=== PATIENT | male | born 1965 | race African-American/Black ===

== ENCOUNTER 2021-01-20 07:25 | Day surgery (SDC) | payer BC ==
--- NOTE | 2021-01-16 11:59 | RAD REPORT ---
EXAM DESCRIPTION: Michelle Farooq (2 Views)01/16/2021 11:52 am CLINICAL HISTORY: Preop COMPARISON: None FINDINGS: The lungs appear clear of acute infiltrate. The heart is normal size IMPRESSION: No acute abnormalities displayed
[2021-01-16 12:02] LABS: Absolute Lymphocytes (CBC) 2.3 K/uL (0.7-4.9); Basophils % 0.6 % (0-1.3); Hematocrit 42.1 % (39.6-49.0); Lymphocytes % 20.5 % (15.3-44.8); MPV 7.3 fL (7.6-11.3)
[2021-01-16 12:38] LABS: BUN Blood Urea Nitrogen 14 mg/dL (7-18); Bicarbonate 24 mmol/L (21-32); Glucose Level 94 mg/dL (74-106); Potassium 3.8 mmol/L (3.5-5.1); Sodium Level 137 mmol/L (136-145)
--- NOTE | 2021-01-16 15:56 | EKG ---
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
[2021-01-20] MEDS ORDERED: Ringers Lactate 1,000 ML IV ONE (07:57)
[2021-01-20] MEDS ORDERED: FENTANYL CITR 100 MCG/2 ML ONE ×2 (08:14→10:00)
[2021-01-20] MEDS ORDERED: MIDAZOLAM HCL 2 MG/2 ML INJ ONE (08:14)
[2021-01-20] MEDS ORDERED: dexAMETHasone 10 MG/ML VIAL ONE (08:14)
[2021-01-20] MEDS ORDERED: LIDOCAINE 1% MPF 5 ML VIAL ONE (08:14)
[2021-01-20] MEDS ORDERED: propofoL 200 MG/20 ML VIAL IV ONE (08:14)
[2021-01-20] MEDS ORDERED: CEFAZOLIN/SWI 2gm 2 GM/20 ML SYR ONE (09:00)
[2021-01-20] MEDS ORDERED: TRIAMCINOLONE ACETON 40 MG/ML VIAL ONE ×2 (09:04)
[2021-01-20] MEDS ORDERED: KETOROLAC 30 MG/ML INJ ONE (09:59)
[2021-01-20] MEDS ORDERED: ONDANSETRON 4 MG/2 ML VIAL ONE (10:28)
[2021-01-20] MEDS ORDERED: PHENAZOPYRIDINE 100MG TAB PO ONE (10:34)
[2021-01-20] MEDS ORDERED: HYDROCODONE/APAP 5/325 MG TAB PO PRN (10:34)
[2021-01-20 14:00] VITALS: BP 112/67; TEMP 97.7; O2SAT 99
--- NOTE | 2021-01-20 20:11 | OP ---
Date of Procedure: 01/20/2021 Surgeon: TORRES ALCALA Preoperative Diagnosis: Urethral stricture disease. Postoperative Diagnosis: Membranous urethral stricture disease of approximately 1.5 cm in length. Principal Procedure: 1. Direct vision internal urethrotomy. 2. Intralesional/intraurethral Kenalog injection 80 mg in 3 cc total volume. 3. Complex placement of a urethral Guillermo catheter. Date of Procedure: 01/20/2021 Indication For Procedure: Mr. Simpson presented to the Urology Clinic having previously been treated for urethral stricture disease recurrent by Dr. Tyson. He had undergone at least 1 if not 2 prior urethral dilations/internal urethrotomy and presented with recurrent pinpoint bulbar urethral stricture disease as observed in the office. Because of the severity of the stricture and the lack of necessary equipment within the office, he was counseled on the need for incision of the stricture, and I recommended Kenalog injection to give him the best opportunity to prevent scar tissue recurrence. Procedure In Detail: The patient was consented in the preoperative holding area before being transferred to the operative suite where general anesthesia was induced. He was given Ancef 2 g IV antimicrobial prophylaxis and pneumo boots were provided for DVT prophylaxis. He was placed in the lithotomy position, padded and secured to the table appropriately. His genitalia were prepped using Hibiclens and draped in standard fashion. The case was begun using a 25-[place] African direct-vision internal urethrotomy set inserting the obturator into the meatus using an obturator. Once this was done, the 0-degree lens with the attached cold knife was then inserted and the urethra was traversed under direct vision down to the level of the stricture, which was at least in the bulbar if not the membranous urethra. As noted previously, the stricture was pinpoint with an opening only approximately 1 or 2 mm maximum. Thus, incising the stricture at the 12 o'clock position, I was able to visualize the depth of the stricture disease to extend for at least another 1 cm proximal to that. As such, I then inverted the camera and incised the stricture at the 5 o'clock position and again at the 7 o'clock position. I was then able to incise the continued area of scar similarly at the 12 o'clock before incising the 5 o'clock and 7 o'clock positions again until an area of more normal mucosa was noted. This was approximately 1 cm from the striated sphincter as indicated by appropriate coaptation and subsequent visualization of the verumontanum proximal to that. I was less able to navigate beyond the verumontanum through the prostatic urethra and into the bladder. The bladder was full of urine and fluid and so was decompressed. I then backed the direct-vision urethrotome into the urethra and the area of stricture and incised further until bleeding tissue was visualized. Once this was done, I then removed the urethrotome and attempted to pass the 22- [place] rigid cystoscope into the bladder. Unfortunately, the cystoscope would not navigate beyond the dorsal lip of the stricture due to the design of the Olympus cystoscope. As a result, I incised further the dorsal overhang of the stricture until I was able to navigate the cystoscope into the prostatic urethra. I then backed the cystoscope into the area of the scar, and using an endoscopic injector needle, I took a mixture of 80 mg Kenalog in 3 cc total volume mixed with normal saline and injected 1 cc into each incised area of the stricture. Once this was performed, I had previously placed a [employer] guidewire into his bladder during the direct vision internal urethrotomy, so I then was able to easily pass a 20-[place] [employer] tip catheter into his bladder. There was return of light pink urine, and 15 cc of normal saline was placed into the balloon. The catheter was then secured via StatLock and a floor bag, and the patient was taken out of the lithotomy position. He was then taken out of the lithotomy position, transferred to a stretcher after being awakened from general anesthesia, and then transferred to the recovery room in good condition. Complications: None. Discharge Disposition: He will maintain the urethral Guillermo catheter for 10-14 days before undergoing a voiding trial in the Urology Clinic with nurse practitionerChris. He will be given a prescription for Bactrim Double Strength tablets twice a day for 14 days total. He should then see me back in followup for cystoscopy in the office in 6-8 weeks from today/the date of surgery. Subsequent determination of urethral calibration versus additional surgical procedures may be determined at that time. RAO/DAXAL Voice ID: [id number] Report ID: [id number] TIKI
== END 2021-01-20 12:10 | disposition home or self-care (01) ==
LOC: OR 07:25
PROVIDERS: ATTEND Urology
PROC: 3E0K83Z Introduction of Anti-inflammatory into Genitourinary Tract, Via Natural or Artificial Opening Endoscopic (ICD-10-PCS; 2021-01-20)
PROC: 0TND8ZZ Release Urethra, Via Natural or Artificial Opening Endoscopic (ICD-10-PCS; principal; 2021-01-20 08:45)
DX: N35.912 Unspecified bulbous urethral stricture, male (principal); R39.9 Unspecified symptoms and signs involving the genitourinary system; R33.9 Retention of urine, unspecified
CPT/HCPCS: 52276; 51715; 93005; 87088; 85025; 87086; 80048; 36415; 85610; 85730; 71046; J2704; J3301 ×2; J2250; J3010 ×2; J1100; J0690; J7120; J2405

== ENCOUNTER 2021-10-26 08:21 | Emergency (ER) | payer BC ==
--- NOTE | 2021-10-26 09:06 | RAD REPORT ---
EXAM DESCRIPTION: RAD - Foot Right 3 View - 10/26/2021 8:57 am CLINICAL HISTORY: PAIN COMPARISON: No comparisons FINDINGS: Accessory phalanges noted involving the fifth toe. Small calcaneal spurs are present. Mild soft tissue swelling is seen about the foot and ankle. No acute fracture is evident.
--- NOTE | 2021-10-26 09:12 | EDPHYS ---
Physician Documentation [facility] Name: Nishant Simpson Age: 56 yrs Sex: Male : 1965 Arrival Date: 10/26/2021 Time: 08:24 Bed 12 Private MD: ED Physician Rivas Carlton HPI: 10/26 08:37 This 56 yrs old Black Male presents to ER via Wheelchair with complaints of Foot injury rn and pain. 08:37 The patient presents with an injury, pain, swelling. The complaints affect the right rn foot. Onset: The symptoms/episode began/occurred 2 day(s) ago. Modifying factors: The symptoms are alleviated by nothing, the symptoms are aggravated by weight bearing, wearing shoes. Associated signs and symptoms: Pertinent positives: swelling, Pertinent negatives: fever, weakness. Severity of symptoms: At their worst the symptoms were moderate, in the emergency department the symptoms are unchanged. The patient has not experienced similar symptoms in the past. The patient has not recently seen a physician. Accidentally kicked ship fan 2 days ago while wearing regular shoes, reports pain to right great toe and distal foot, no other injury or pain.. Historical: - Allergies: 08:30 No Known Allergies; iw - Home Meds: 08:30 None [Active]; iw - PMHx: 08:30 None; iw - PSHx: 08:30 None; iw - Immunization history:: Client reports receiving the 2nd dose of the Covid vaccine. - Social history:: Smoking status: Patient denies any tobacco usage or history of. - Family history:: not pertinent. - Hospitalizations: : No recent hospitalization is reported. ROS: 08:37 MS/extremity: Positive for pain, swelling, Negative for deformity, paresthesias, rn puncture. 08:37 Constitutional: Negative for fever, chills, and weight loss, MS/Extremity: + injury and pain to right great toe and distal foot Skin: Negative for injury, rash, and discoloration, Neuro: Negative for weakness, numbness, tingling Exam: 08:37 Constitutional: This is a well developed, well nourished patient who is awake, alert, rn and in no acute distress. Skin: Warm, dry MS/ Extremity: Pulses equal, no cyanosis. Neurovascular intact. + mild tenderness and painful ROM right great toe and just proximal to 1st/2nd toes, no gross deformity, + mild swelling, no open wounds Vital Signs: 08:30 BP 141 / 107; Pulse 102; Resp 16; Pulse Ox 100% on R/A; Weight 106.59 kg; Height 5 ft. iw 6 in. (167.64 cm); Pain 9/10; 08:30 Body Mass Index 37.93 (106.59 kg, 167.64 cm) iw MDM: 08:33 Patient medically screened. rn 09:10 Differential diagnosis: fracture, sprain, arthritis. Data reviewed: vital signs, nurses rn notes, radiologic studies, plain films, and as a result, I will discharge patient. Counseling: I had a detailed discussion with the patient and/or guardian regarding: the historical points, exam findings, and any diagnostic results supporting the discharge/admit diagnosis, radiology results, the need for outpatient follow up, to return to the emergency department if symptoms worsen or persist or if there are any questions or concerns that arise at home. Special discussion: I discussed with the patient/guardian in detail that at this point there is no indication for admission to the hospital. It is understood, however, that if the symptoms persist or worsen the patient needs to return immediately for re-evaluation. 10/26 08:33 Order name: XRAY Foot RIGHT 3 View; Complete Time: 09:10 rn Administered Medications: No medications were administered Disposition Summary: 10/26/21 09:10 Discharge Ordered Location: Home rn Problem: new rn Symptoms: have improved rn Condition: Stable rn Diagnosis - Contusion of right foot rn Followup: rn - With: Private Physician - When: As needed - Reason: Recheck today's complaints, Re-evaluation by your physician Discharge Instructions: - Discharge Summary Sheet rn - Foot Contusion rn Forms: - Medication Reconciliation Form rn - Thank You Letter rn - Antibiotic rn wound care - Work release form iw - Prescription Opioid Use rn Signatures: Dispatcher [employer] Destiny Gary RN RN iw Rivas Carlton MD MD rn
--- NOTE | 2021-10-26 09:12 | ER ---
Nurse's Notes [facility] Name: Nishant Simpson Age: 56 yrs Sex: Male : 1965 Arrival Date: 10/26/2021 Time: 08:24 Bed 12 Private MD: Diagnosis: Contusion of right foot Presentation: 10/26 08:28 Chief complaint: Patient states: Tuesday night he kicked a shop fan in his garage , iw now has pain and swelling to right great toe and foot. Coronavirus screen: At this time, the client does not indicate any symptoms associated with coronavirus-19. Ebola Screen: Patient negative for fever greater than or equal to 101.5 degrees Fahrenheit, and additional compatible Ebola Virus Disease symptoms Patient denies exposure to infectious person. Patient denies travel to an Ebola-affected area in the 21 days before illness onset. No symptoms or risks identified at this time. Initial Sepsis Screen: Does the patient meet any 2 criteria? No. Patient's initial sepsis screen is negative. Does the patient have a suspected source of infection? No. Patient's initial sepsis screen is negative. Risk Assessment: Do you want to hurt yourself or someone else? Patient reports no desire to harm self or others. Onset of symptoms was October 24, 2021. 08:28 Method Of Arrival: Wheelchair iw 08:28 Acuity: TIMBO 4 iw Historical: - Allergies: 08:30 No Known Allergies; iw - Home Meds: 08:30 None [Active]; iw - PMHx: 08:30 None; iw - PSHx: 08:30 None; iw - Immunization history:: Client reports receiving the 2nd dose of the Covid vaccine. - Social history:: Smoking status: Patient denies any tobacco usage or history of. - Family history:: not pertinent. - Hospitalizations: : No recent hospitalization is reported. Screenin:36 Abuse screen: Denies threats or abuse. Denies injuries from another. Nutritional iw screening: No deficits noted. Tuberculosis screening: No symptoms or risk factors identified. Fall Risk None identified. Assessment: 08:36 General: Appears in no apparent distress. Behavior is calm, cooperative. Pain: iw Complains of pain in medial aspect of right toes and right first toe Pain currently is 9 out of 10 on a pain scale. Neuro: Level of Consciousness is awake, alert, obeys commands, Oriented to person, place, time, situation, Moves all extremities. Full function. Cardiovascular: Patient's skin is warm and dry. Respiratory: Respiratory effort is even, unlabored, Respiratory pattern is regular. Derm: Skin is intact, is healthy with good turgor. Vital Signs: 08:30 BP 141 / 107; Pulse 102; Resp 16; Pulse Ox 100% on R/A; Weight 106.59 kg; Height 5 ft. iw 6 in. (167.64 cm); Pain 9/10; 08:30 Body Mass Index 37.93 (106.59 kg, 167.64 cm) iw ED Course: 08:24 Patient arrived in ED. ds1 08:30 Triage completed. iw 08:30 Arm band placed on. iw 08:32 Rivas Carlton MD is Attending Physician. rn 08:36 Destiny Delvalle RN is Primary Nurse. iw 08:59 XRAY Foot RIGHT 3 View In Process Unspecified. EDMS 09:00 Patient has correct armband on for positive identification. iw 09:40 No provider procedures requiring assistance completed. Patient did not have IV access iw during this emergency room visit. Administered Medications: No medications were administered Outcome: 09:10 Discharge ordered by . rn 09:40 Discharged to home with family. iw 09:40 Condition: good 09:40 Discharge instructions given to patient, Instructed on discharge instructions, follow up and referral plans. Demonstrated understanding of instructions, follow-up care. 09:41 Patient left the ED. iw Signatures: Dispatcher [employer] EDID [email or web address] [id number] Destiny Delvalle RN RN iw Rivas Carlton MD MD rn
[2021-10-26 09:45] VITALS: BP 141/107; O2SAT 100
== END 2021-10-26 09:41 | disposition home or self-care (01) ==
LOC: ER 08:21
DX: S90.31XA Contusion of right foot, initial encounter (principal); W22.8XXA Striking against or struck by other objects, initial encounter
CPT/HCPCS: 99282

== ENCOUNTER 2025-05-06 06:00 | Observation (INO) | payer BC ==
--- NOTE | 2025-05-06 07:16 | RAD REPORT ---
EXAMINATION: ONE VIEW CHEST XR CLINICAL INDICATION: Male, 59 years old.,COUGH TECHNIQUE: Frontal chest projection is submitted. Examination is limited by patient positioning and t echnique. COMPARISON: 01/16/2021 FINDINGS: The lungs are grossly clear although suboptimal inspiratory effort somewhat limits evaluation. No pn eumothorax or sizable effusion. The heart is normal in size. Mediastinal contours are unremarkable. IMPRESSION: No acute intrathoracic abnormalities.
[2025-05-06] MEDS ORDERED: ONDANSETRON 4 MG/2 ML VIAL ONE (07:48)
[2025-05-06] MEDS ORDERED: FENTANYL CITR 100 MCG/2 ML ONE (07:49)
[2025-05-06] MEDS ORDERED: CEFTRIAXONE 2000 MG/VIAL ONE (07:49)
[2025-05-06] MEDS ORDERED: KETOROLAC 30 MG/ML INJ ONE (07:49)
[2025-05-06] MEDS ORDERED: Levofloxacin 750mg IV 750 MG/150 ML BAG IV ONE (07:51)
[2025-05-06] MEDS ORDERED: NA CHLORIDE 0.9% 1,000 ML ONE (07:51)
[2025-05-06] MEDS ORDERED: NA CHLORIDE 0.9% 50 ML ONE (07:51)
[2025-05-06 07:52] LABS: Absolute Lymphocytes (CBC) 1.3 K/uL (0.7-4.9); Hematocrit 40.9 % (39.6-49.0); Hemoglobin 14.1 g/dL (13.6-17.9); MCH 27.4 pg (27.0-35.0); MCHC 34.5 g/dL (32.0-36.0); MCV 79.4 fL (80-100); MPV 6.4 fL (7.6-11.3); Nucleated RBC Absolute Count 0.0 (0-0); Nucleated Red Blood Cells % 0.0 % (0-0); RBC Red Blood Cell Count 5.15 M/uL (4.33-5.43); White Blood Count 22.20 thou/uL (4.3-10.9)
[2025-05-06 08:00] LABS: PT Prothrombin Time 15.4 SECONDS (10-13.0); Protime INR 1.38
[2025-05-06 08:13] LABS: ALT/SGPT 22.0 U/L (16-61); AST/SGOT 14.0 U/L (15-37); Albumin 3.4 g/dL (3.4-5.0); Albumin/Globulin Ratio 0.7 (1.1-1.8); Alkaline Phosphatase 78.0 U/L (45-117); Anion Gap 7.8 mEq/L (5.0-15.0); BUN Blood Urea Nitrogen 10.0 mg/dL (7-18); Bilirubin Indirect, Calculated 0.7 mg/dL (0.2-0.8); Globulin 5.0 g/dL (2.3-3.5); Glucose Level 141.0 mg/dL (74-106); Lipase 30.0 U/L (13-75); Magnesium 2.0 mg/dL (1.6-2.4); NT PRO-BNP 50.0 pg/mL (<125); Potassium 3.8 mEq/L (3.5-5.1)
[2025-05-06 08:21] LABS: Troponin High Sensitivity 89.0 pg/mL (<58.9)
--- NOTE | 2025-05-06 08:25 | RAD REPORT ---
EXAMINATION: ULTRASOUND DUPLEX OF SCROTUM AND TESTICLES CLINICAL INDICATION: Male, 59 years, Fever;Pain;Swelling TECHNIQUE: Duplex scan of the scrotal contents was performed including real-time color and spectral D oppler ultrasonography with arterial inflow and venous outflow. COMPARISON: No prior exam. FINDINGS: RIGHT TESTICLE AND EPIDIDYMIS: The right testicle is mildly enlarged, measuring 4.6 x 3.2 x 3.5 cm. Normal, homogeneous echotexture with mild diffuse parenchymal edema, but no focal lesion seen. The right epididymis is enlarged. Small epididymal head cysts. Color Doppler flow in the right testicle shows diffuse hyperemia. Diffuse atrophy is particularly yvette ng the head as well. Normal arterial and venous spectral Doppler waveforms are identified. Mild complex hydrocele. Small Varicocele. LEFT TESTICLE AND EPIDIDYMIS: The left testicle is normal in size, measuring 4.3 x 2.3 x 2.4 cm. Normal, homogeneous echotexture with no focal lesion seen. The left epididymis is normal. Small epididymal head cysts. Color Doppler flow in the left testicle is normal. Normal arterial and venous spectral Doppler waveforms are identified. No hydrocele. Small varicocele. INGUINAL CANAL: No hernia. ADDITIONAL FINDINGS: None. IMPRESSION: Findings compatible with acute right epididymo-orchitis. Mild right hydrocele, mildly complex.
[2025-05-06 08:49] LABS: Blood Morphology Comment NOT SEEN (NOT SEEN); White Blood Cell Scan OK (OK)
--- NOTE | 2025-05-06 08:50 | EDPHYS ---
Physician Documentation [facility] Name: Nishant Simpson Age: 59 yrs Sex: Male : 1965 Arrival Date: 05/06/2025 Time: 06:00 Bed 7 Private MD: ED Physician Rivas Carlton HPI: 05/06 06:54 This 59 yrs old Black Male presents to ER via Ambulatory with complaints of Groin Pain, nemesio Fever. 06:54 The patient reports fever, not measured (subjective). Onset: The symptoms/episode nemesio began/occurred 3 day(s) ago. Modifying factors: there are no obvious modifying factors. Associated signs and symptoms: Pertinent positives:. Severity of symptoms: At their worst the symptoms were moderate in the emergency department the symptoms are unchanged. The patient has not experienced similar symptoms in the past. Historical: - Allergies: 06:36 No Known Allergies; br2 - PMHx: 06:36 None; br2 - Immunization history:: Adult Immunizations up to date. - Infectious Disease History:: Denies. - Social history:: Smoking status: Patient denies any tobacco usage or history of. Patient uses alcohol, on a daily basis. Patient/guardian denies using street drugs. ROS: 06:55 Constitutional: Negative for fever, chills, and weight loss, Eyes: Negative for injury, nemesio pain, redness, and discharge, ENT: Negative for injury, pain, and discharge, Neck: Negative for injury, pain, and swelling, Cardiovascular: Negative for chest pain, palpitations, and edema, Respiratory: Negative for shortness of breath, cough, wheezing, and pleuritic chest pain, Abdomen/GI: Negative for abdominal pain, nausea, vomiting, diarrhea, and constipation, Back: Negative for injury and pain, MS/Extremity: Negative for injury and deformity, Skin: Negative for injury, rash, and discoloration, Neuro: Negative for headache, weakness, numbness, tingling, and seizure, Psych: Negative for depression, anxiety, suicide ideation, homicidal ideation, and hallucinations, Allergy/Immunology: Negative for hives, rash, and allergies, Endocrine: Negative for neck swelling, polydipsia, polyuria, polyphagia, and marked weight changes, Hematologic/Lymphatic: Negative for swollen nodes, abnormal bleeding, and unusual bruising, 06:55 : Positive for testicular pain of the right testicle, Exam: 06:55 Constitutional: This is a well developed, well nourished patient who is awake, alert, nemesio and in no acute distress. Head/Face: Normocephalic, atraumatic. Eyes: Pupils equal round and reactive to light, extra-ocular motions intact. Lids and lashes normal. Conjunctiva and sclera are non-icteric and not injected. Cornea within normal limits. Periorbital areas with no swelling, redness, or edema. ENT: Nares patent. No nasal discharge, no septal abnormalities noted. Tympanic membranes are normal and external auditory canals are clear. Oropharynx with no redness, swelling, or masses, exudates, or evidence of obstruction, uvula midline. Mucous membranes moist. Neck: Trachea midline, no thyromegaly or masses palpated, and no cervical lymphadenopathy. Supple, full range of motion without nuchal rigidity, or vertebral point tenderness. No Meningismus. Chest/axilla: Normal chest wall appearance and motion. Nontender with no deformity. No lesions are appreciated. Cardiovascular: Regular rate and rhythm with a normal S1 and S2. No gallops, murmurs, or rubs. Normal PMI, no JVD. No pulse deficits. Respiratory: Lungs have equal breath sounds bilaterally, clear to auscultation and percussion. No rales, rhonchi or wheezes noted. No increased work of breathing, no retractions or nasal flaring. Abdomen/GI: Soft, non-tender, with normal bowel sounds. No distension or tympany. No guarding or rebound. No evidence of tenderness throughout. Back: No spinal tenderness. No costovertebral tenderness. Full range of motion. Skin: Warm, dry with normal turgor. Normal color with no rashes, no lesions, and no evidence of cellulitis. MS/ Extremity: Pulses equal, no cyanosis. Neurovascular intact. Full, normal range of motion., bilateral aka Neuro: Awake and alert, GCS 15, oriented to person, place, time, and situation. Cranial nerves II-XII grossly intact. Motor strength 5/5 in all extremities. Sensory grossly intact. Cerebellar exam normal. Normal gait. Psych: Awake, alert, with orientation to person, place and time. Behavior, mood, and affect are within normal limits. 06:55 : CVA tenderness, is absent, Male external genitalia: tenderness, is palpated in the right inguinal area, of the epididymis area, that is moderate, Bladder: is normal, Vital Signs: 06:34 BP 152 / 79; Pulse 91; Resp 18; Temp 98.6; Pulse Ox 95% ; Weight 106.14 kg; Height 5 br2 ft. 6 in. ; Pain 10/10; 07:15 BP 150 / 89; Pulse 94; Resp 18; Pulse Ox 95% ; db 07:30 BP 150 / 81; Pulse 89; Resp 16; Pulse Ox 95% ; db 08:00 BP 144 / 73; Pulse 95; Resp 16; Pulse Ox 97% ; db 08:59 BP 123 / 72; Pulse 85; Resp 18; Pulse Ox 96% on R/A; ar8 09:30 BP 118 / 71; Pulse 81; Resp 18; Pulse Ox 97% on R/A; ar8 10:30 BP 108 / 69; Pulse 80; Resp 16; Pulse Ox 98% on R/A; ar8 11:30 BP 111 / 65; Pulse 75; Resp 18 S; Pulse Ox 96% on R/A; ar8 12:00 BP 116 / 66; Pulse 85; Resp 18; Pulse Ox 99% on R/A; ar8 13:00 BP 138 / 72; Pulse 93; Resp 19; Pulse Ox 99% on R/A; ar8 14:00 BP 126 / 74; Pulse 89; Resp 20; Pulse Ox 99% on R/A; ar8 06:34 Body Mass Index 37.77 (106.14 kg, 167.64 cm) br2 06:34 Pain Scale: Adult br2 MDM: 06:08 Medical Screening Exam initiated nemesio 06:57 Differential diagnosis: nonspecific abdominal pain, appendicitis, UTI, prostatitis, nemesio urethritis, EPIDIDMYSIS viral Infection, bacterial infection, gastroenteritis. Data reviewed: vital signs, nurses notes, lab test result(s), EKG, radiologic studies, CT scan, plain films, ultrasound. Consideration of Admission/Observation Escalation of care including admission/observation considered. I considered the following discharge prescriptions or medication management in the emergency department Medications were administered in the Emergency Department. See MAR. Independent interpretation of the following test(s) in the Emergency Department CT Scan: My interpretation is CT AB/PEL. Test considered but Not performed: MRI: NO ABD MRI. Historians other than the Patient: Spouse/Significant Other: WELL INFORMED. Care significantly affected by the following chronic conditions: Obesity. Counseling: I had a detailed discussion with the patient and/or guardian regarding the historical points, exam findings, and any diagnostic results supporting the discharge/admit diagnosis, lab results, radiology results, the need for outpatient follow up, for definitive care, a family practitioner, a urologist. 07:34 Transition of care: Care assumed from Austin Garcia MD. ED course: Patient signed out rn to me by Dr. Garcia, pending all workup and results.. 08:48 ED course: Patient with elevated WBC, source of infection is epididymoorchitis, normal rn lactic acid, has elevated troponin. Will admit for severe sepsis without septic shock. Patient does not require fluid bolus at this time. Antibiotics administered.. 05/06 06:09 Order name: Basic Metabolic Panel; Complete Time: 08:22 [facility] 05/06 06:09 Order name: CBC with Diff; Complete Time: 09:16 [facility] 05/06 06:09 Order name: LFT's; Complete Time: 08:22 [facility] 05/06 06:09 Order name: Magnesium; Complete Time: 08:22 [facility] 05/06 06:09 Order name: NT PRO-BNP; Complete Time: 08:22 nemesio 05/06 06:09 Order name: PT-INR; Complete Time: 08:22 [facility] 05/06 06:09 Order name: Troponin HS; Complete Time: 08:22 [facility] 05/06 06:09 Order name: Lipase; Complete Time: 08:22 [facility] 05/06 06:09 Order name: UA Rfx Peter Cult if indicated [facility] 05/06 06:09 Order name: Blood Culture Adult (2) [facility] 05/06 06:09 Order name: Lactate w/ 2H reflex if indic.; Complete Time: 08:26 [facility] 05/06 08:00 Order name: CBC Smear Scan; Complete Time: 09:16 EDMS 05/06 10:31 Order name: CBC with Automated Diff EDMS 05/06 10:31 Order name: CBC with Automated Diff EDMS 05/06 10:31 Order name: Comprehensive Metabolic Panel EDMS 05/06 10:31 Order name: Comprehensive Metabolic Panel EDMS 05/06 10:31 Order name: Protime (+INR) EDMS 05/06 10:31 Order name: Protime (+INR) EDMS 05/06 10:31 Order name: PTT, Activated Partial Thromb EDMS 05/06 10:31 Order name: PTT, Activated Partial Thromb EDMS 05/06 10:32 Order name: GC (Costa/Chl) Probe CX/URE EDMA 05/06 06:09 Order name: XRAY Chest (1 view); Complete Time: 08:22 [facility] 05/06 06:09 Order name: CT Abd/Pelvis - IV Contrast Only; Complete Time: 09:16 [facility] 05/06 06:54 Order name: US Scrotum Testicles; Complete Time: 08:26 [facility] 05/06 08:06 Order name: Abdomen Pelvis Scan\E\US; Complete Time: 08:26 EDMA 05/06 06:09 Order name: Cardiac monitoring; Complete Time: 10:16 [facility] 05/06 06:09 Order name: EKG - Nurse/Tech; Complete Time: 10:16 [facility] 05/06 06:09 Order name: IV Saline Lock; Complete Time: 08:19 [facility] 05/06 06:09 Order name: Labs collected and sent; Complete Time: 08:19 [facility] 05/06 06:09 Order name: O2 Per Protocol; Complete Time: 08:19 [facility] 05/06 06:09 Order name: O2 Sat Monitoring; Complete Time: 08:19 [facility] Administered Medications: 06:53 CANCELLED (Duplicate Order): [id number] mg 100 ml IVPB once over 60 mins nemesio 08:00 Drug: NS 0.9% IV 1000 ml IV at 1000 ml once; to be given as a bolus over 60 minutes db Route: IV; Rate: 1000 ml; Site: right forearm; 08:00 Drug: Rocephin IV 2 grams IV at per protocol once; Given slow IV push per pharmarcy db instructions Route: IV; Rate: per protocol; Site: right forearm; 08:55 Follow up: Response: No adverse reaction; IV Status: Completed infusion ar8 08:00 Drug: fentaNYL (PF) IVP 50 mcg IVP once Route: IVP; Site: right forearm; db 08:00 Drug: Ondansetron IVP 8 mg IVP once; over 2 minutes Route: IVP; Site: right forearm; db 08:00 Drug: Ketorolac IVP 30 mg IVP once Route: IVP; Site: right forearm; db 08:58 Drug: levofloxacin IVPB 750 mg 150 ml IVPB once over 90 mins Volume: 150 ml; Route: ar8 IVPB; Infused Over: 90 mins; Site: right forearm; 09:42 Drug: Aspirin PO 325 mg PO once Route: PO; mary Disposition Summary: 05/06/25 08:50 Hospitalization Ordered Notes: Hospitalization Status: Inpatient Admission rn Provider: Johny Pillai rn [facility] ([facility] rn Condition: Stable rn Problem: new rn Symptoms: have improved rn Bed/Room Type: Standard rn Room Assignment: 201(05/06/25 12:54) bd Diagnosis - Epididymo-orchitis rn - Severe sepsis without septic shock 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 Instructions: - Discharge Summary Sheet nemesio - Epididymitis nemesio - Fever, Adult nemesio - Orchitis nemesio - Fever, Adult, [id number] nemesio Forms: - Medication Reconciliation Form rn - SBAR form rn - Leadership Thank You Letter rn Prescriptions: - diclofenac sodium 50 mg Oral tablet, delayed release (enteric coated) - take 1 tablet ORAL route 3 times per day as needed for pain; 30 tablet; nemesio Refills: 0, Product Selection Permitted - ondansetron 4 mg Oral Tablet,disintegrating - take 1 tablet ORAL route every 6 hours as needed for nausea and vomiting; 20 nemesio tablet; Refills: 0, Product Selection Permitted - levofloxacin 750 mg Oral tablet - take 1 tablet ORAL route once daily; 13 tablet; Refills: 0, Product Selection nemesio Permitted - Tylenol-Codeine #3 300mg-30mg Oral tablet - take 2 tablets ORAL route every 6 hours As needed; 20 tablet; Refills: 0, nemesio Product Selection Permitted Critical care time excluding procedures: 08:50 Critical care time: Bedside Care: 25 minutes, Consultation: 10 minutes. Total time: 35 rn minutes Signatures: Dispatcher [employer] EDMS Beronica Painter Corey, MD MD cha Nieto, Roman, MD MD rn Benton, Danielle RN RN Fawn Ferraro RN RN br2 Brock Jett, RN RN ar8 Corrections: (The following items were deleted from the chart) 06:10 06:10 BASIC METABOLIC PANEL+C.LAB.BRZ ordered. EDMS EDMS 06:10 06:10 CBC+H.LAB.BRZ ordered. EDMS EDMS 06:10 06:10 HEPATIC FUNCTION+C.LAB.BRZ ordered. EDMS EDMS 06:10 06:10 MAGNESIUM+C.LAB.BRZ ordered. EDMS EDMS 06:10 06:10 PROBNP+C.LAB.BRZ ordered. EDMS EDMS 06:10 06:10 PROTIME (+INR)+COAG.LAB.BRZ ordered. EDMS EDMS 06:10 06:10 Troponin High Sensitivity+C.LAB.BRZ ordered. EDMS EDMS 06:10 06:10 LIPASE+C.LAB.BRZ ordered. EDMS EDMS 06:10 06:10 UA Rfx Peter Cult if indicated+U.LAB.BRZ ordered. EDMS EDMS 06:10 06:10 BLOOD CULTURE*+BA.LAB.BRZ ordered. EDMS EDMS 06:10 06:10 LACTATE+C.LAB.BRZ ordered. EDMS EDMS 06:10 06:10 Chest Single View+RAD.RAD.BRZ ordered. EDMS EDMS 06:10 06:10 Abdomen Pelvis W Con+CT.RAD.BRZ ordered. EDMS EDMS 06:53 06:09 levofloxacin IVPB 500 mg 100 ml IVPB once over 60 mins ordered. nemesio nemesio 12:54 08:50 rn bd
--- NOTE | 2025-05-06 08:50 | ER ---
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 DENIES URINARY SYMPTOMS. Coronavirus screen: Client denies travel out of the [place] in the last 14 days. Ebola Screen: Patient denies exposure to infectious person. Initial Sepsis Screen: Does the patient meet any 2 criteria? No. Patient's initial sepsis screen is negative. Does the patient have a suspected source of infection? No. Patient's initial sepsis screen is negative. Risk Assessment: Do you want to hurt yourself or someone else? Patient reports no desire to harm self or others. Onset of symptoms was May 05, 2025. 06:34 Method Of Arrival: Ambulatory br2 06:34 Acuity: TIMBO 3 br2 Triage Assessment: 06:36 General: Appears in no apparent distress. uncomfortable, Behavior is calm, cooperative. br2 Pain: Complains of pain in groin Pain currently is 10 out of 10 on a pain scale. Historical: - Allergies: 06:36 No Known Allergies; br2 - PMHx: 06:36 None; br2 - Immunization history:: Adult Immunizations up to date. - Infectious Disease History:: Denies. - Social history:: Smoking status: Patient denies any tobacco usage or history of. Patient uses alcohol, on a daily basis. Patient/guardian denies using street drugs. Screenin:42 [facility] ED Fall Risk Assessment (Adult) History of falling in the last 3 months, vc1 including since admission No falls in past 3 months (0 pts) Confusion or Disorientation No (0 pts) Intoxicated or Sedated No (0 pts) Impaired Gait No (0 pts) Mobility Assist Device Used No (0 pt) Altered Elimination No (0 pt) Score/Fall Risk Level 0 - 2 = Low Risk Oriented to surroundings, Maintained a safe environment, Educated pt \T\ family on fall prevention, incl call for assistance when getting out of bed, Assessed \T\ reinforced patient's understanding of fall precautions, Hourly rounding (assess needs \T\ fall precautionary measures) done. Abuse screen: Denies threats or abuse. Nutritional screening: No deficits noted. Tuberculosis screening: No symptoms or risk factors identified. Assessment: 07:19 Reassessment: Patient appears in no apparent distress at this time. Patient and/or db family updated on plan of care and expected duration. Pain level reassessed. Patient is alert, oriented x 3, equal unlabored respirations, skin warm/dry/pink. Reassessment: MUCK BOSS IS AT PATIENT BEDSIDE. General: Appears in no apparent distress. comfortable, Behavior is calm, cooperative. Neuro: Level of Consciousness is awake, alert, obeys commands, Oriented to person, place, time, situation. Respiratory: Airway is patent Respiratory effort is even, unlabored, Respiratory pattern is regular, symmetrical. 08:14 Reassessment: Patient appears in no apparent distress at this time. Patient and/or db family updated on plan of care and expected duration. Pain level reassessed. Patient is alert, oriented x 3, equal unlabored respirations, skin warm/dry/pink. Vital Signs: 06:34 BP 152 / 79; Pulse 91; Resp 18; Temp 98.6; Pulse Ox 95% ; Weight 106.14 kg; Height 5 br2 ft. 6 in. ; Pain 10/10; 07:15 BP 150 / 89; Pulse 94; Resp 18; Pulse Ox 95% ; db 07:30 BP 150 / 81; Pulse 89; Resp 16; Pulse Ox 95% ; db 08:00 BP 144 / 73; Pulse 95; Resp 16; Pulse Ox 97% ; db 08:59 BP 123 / 72; Pulse 85; Resp 18; Pulse Ox 96% on R/A; ar8 09:30 BP 118 / 71; Pulse 81; Resp 18; Pulse Ox 97% on R/A; ar8 10:30 BP 108 / 69; Pulse 80; Resp 16; Pulse Ox 98% on R/A; ar8 11:30 BP 111 / 65; Pulse 75; Resp 18 S; Pulse Ox 96% on R/A; ar8 12:00 BP 116 / 66; Pulse 85; Resp 18; Pulse Ox 99% on R/A; ar8 13:00 BP 138 / 72; Pulse 93; Resp 19; Pulse Ox 99% on R/A; ar8 14:00 BP 126 / 74; Pulse 89; Resp 20; Pulse Ox 99% on R/A; ar8 06:34 Body Mass Index 37.77 (106.14 kg, 167.64 cm) br2 06:34 Pain Scale: Adult br2 ED Course: 06:03 Patient arrived in ED. mr 06:08 Austin Garcia MD is Attending Physician. nemesio 06:36 Triage completed. br2 06:36 Arm band placed on right wrist. br2 06:43 Patient has correct armband on for positive identification. Bed in low position. vc1 Provided Education on: Plan of care. Pulse ox on. NIBP on. 06:47 XRAY Chest (1 view) In Process Unspecified. EDMS 07:19 Glory Jacob, GARFIELD is Primary Nurse. db 07:30 US Scrotum Testicles In Process Unspecified. EDMS 07:34 Attending Physician role handed off by Austin Garcia MD rn 07:34 Rivas Carlton MD is Attending Physician. rn 07:39 Inserted saline lock: 20 gauge in right forearm, using aseptic technique. Blood db collected. Flushed with 10 mL NS. 07:39 Initial lab(s) drawn, by me, sent to lab. First set of blood cultures drawn by me. db 07:59 Second set of blood cultures drawn. db 08:06 Abdomen Pelvis Scan\E\US In Process Unspecified. EDMS 08:37 CT Abd/Pelvis - IV Contrast Only In Process Unspecified. EDMS 08:49 Johny Pillai MD is Hospitalizing Provider. rn 11:54 Diet: Patient given a regular meal tray. ar8 15:06 Patient admitted, IV remains in place. ar8 15:06 No provider procedures requiring assistance completed. ar8 Administered Medications: 06:53 CANCELLED (Duplicate Order): [id number] mg 100 ml IVPB once over 60 mins nemesio 08:00 Drug: NS 0.9% IV 1000 ml IV at 1000 ml once; to be given as a bolus over 60 minutes db Route: IV; Rate: 1000 ml; Site: right forearm; 08:00 Drug: Rocephin IV 2 grams IV at per protocol once; Given slow IV push per pharmarcy db instructions Route: IV; Rate: per protocol; Site: right forearm; 08:55 Follow up: Response: No adverse reaction; IV Status: Completed infusion ar8 08:00 Drug: fentaNYL (PF) IVP 50 mcg IVP once Route: IVP; Site: right forearm; db 08:00 Drug: Ondansetron IVP 8 mg IVP once; over 2 minutes Route: IVP; Site: right forearm; db 08:00 Drug: Ketorolac IVP 30 mg IVP once Route: IVP; Site: right forearm; db 08:58 Drug: levofloxacin IVPB 750 mg 150 ml IVPB once over 90 mins Volume: 150 ml; Route: ar8 IVPB; Infused Over: 90 mins; Site: right forearm; 09:42 Drug: Aspirin PO 325 mg PO once Route: PO; db Medication: 06:43 VIS not applicable for this client. vc1 Outcome: 08:50 Decision to Hospitalize by Provider. rn 15:06 Admitted to Med/surg accompanied by tech, family with patient, via wheelchair, room ar8 201, with chart, 15:06 Condition: stable 15:06 Discharge instructions given to Patient instructed on reason for admission. 15:07 Patient left the ED. ar8 Signatures: Dispatcher [employer] EDMS Austin Garcia MD MD cha Rivera, Mary, Reg Reg Rivas Bethea MD MD rn Calcote, Vanessa RN RN vc1 Glory Jacob RN RN db Fawn Lara RN RN br2 Brock Jett RN RN ar8 Corrections: (The following items were deleted from the chart) 07:45 07:39 Initial lab(s) drawn, by me, sent to lab. db db
--- NOTE | 2025-05-06 09:15 | RAD REPORT ---
EXAMINATION: CT Abdomen Pelvis W Contrast CLINICAL INDICATION: Male, 59 years old. ABD PAIN TECHNIQUE: CT abdomen and pelvis was performed, after the administration of IV contrast, as per [facility] protocol. Axial, sagittal and coronal reconstructions were obtained. One or more of the following dose reduction techniques were used: Automated exposure control, adjustment of the mA and k V according to patient size, and iterative reconstruction. Unless otherwise specified, incidental findings do not require dedicated imaging follow-up. COMPARISON: Scrotum ultrasound of the same day FINDINGS: LOWER CHEST: The visualized lung bases are clear. LIVER: Normal in size and contour. No focal lesion. BILIARY SYSTEM: No suspicious abnormalities. SPLEEN: Normal size. No focal lesion. PANCREAS: No mass, ductal dilation, or candie-pancreatic fluid. ADRENALS: Normal; no mass. KIDNEYS: Normal size and contour. Small exophytic cystic lesions within the left renal cortex largest measuring 11, not well characterized given size. No hydronephrosis. URINARY BLADDER: Somewhat nodular wall prominence particularly along the dome/posterior wall. No foca l wall masses or calculi.. GASTROINTESTINAL TRACT: No evidence of free air, significant intra-abdominal free fluid, bowel obstru ction or abscess. APPENDIX: Normal appendix. LYMPH NODES: No lymphadenopathy. MUSCULOSKELETAL: No acute or suspicious osseous abnormality. ADDITIONAL FINDINGS: Nonspecific mild fat stranding in the mesenteric root. This could be idiopathic or related to multiple possible etiologies, including but not limited to an upper abdominal infectious/inflammatory process, panniculitis, and can even be seen with neoplastic conditions such a s lymphoma. IMPRESSION: Mildly nodular urinary bladder wall prominence particularly posterior wall, could reflect sequelae of acute or chronic cystitis. Please correlate clinically and with urinalysis results. Nonspecific central mesenteric root fat stranding as above.
--- NOTE | 2025-05-06 09:31 | P.HP ---
Certification for Inpatient Patient admitted to: Inpatient With expected LOS: >2 Midnights Patient will require the following post-hospital care: None Practitioner: I am a practitioner with admitting privileges, knowledge of patient current condition, hospital course, and medical plan of care. Services: Services provided to patient in accordance with Admission requirements found in Title 42 Section 412.3 of the Code of Federal Regulations Patient History Date of Service: 05/06/25 Reason for admission: Right groin pain History of Present Illness: Patient is a 59-year-old gentleman came to the hospital with groin pain to the right side. Patient's been having some pain over the last couple days and had a fever overnight. Pain got exquisitely tender earlier this morning so came to the emergency room. In the ER workup revealed patient had epididymitis and orchitis. Will do urine cultures to rule out E. coli and will go ahead and do a swab as well. Patient will be admitted to the hospital for further evaluation. Allergies No Known Allergies Allergy (Verified 01/16/21 11:21) Home Medications: Sulfamethoxazole/Trimethoprim [Bactrim Ds Tablet] 1 each PO BID #28 tablet 01/20/21 - Past Medical/Surgical History Past Medical History: Patient denies medical history Past Surgical History: Patient denies surgical history - Family History Mother Family History: Reviewed- Non-Contributory - Social History Smoking Status: Former smoker Alcohol use: No CD- Drugs: No Review of Systems 10-point ROS is otherwise unremarkable Physical Examination - Vital Signs Temperature: 99.9 F Blood Pressure: 110/80 Pulse: 88 Respirations: 18 Pulse Ox (%): 95 - Physical Exam General: Alert, In no apparent distress, Oriented x3 HEENT: Atraumatic, PERRLA, Mucous membr. moist/pink, EOMI, Sclerae nonicteric Neck: Supple, 2+ carotid pulse no bruit, No LAD, Without JVD or thyroid abnormality Respiratory: Clear to auscultation bilaterally, Normal air movement Cardiovascular: Regular rate/rhythm, Normal S1 S2 Gastrointestinal: Normal bowel sounds, Soft and benign, Non-distended, No tenderness Musculoskeletal: No clubbing, No swelling, No tenderness Integumentary: No rashes Neurological: Normal gait, Normal speech, Normal strength at 5/5 x4 extr, Normal tone, Sensation intact, Cranial nerves 3-12 intact, Normal affect Lymphatics: No axilla or inguinal lymphadenopathy External genitalia: Tenderness (Right inguinal region which extends to the right scrotal region) - Studies Laboratory Data (last 24 hrs) 05/06/25 05/06/25 05/06/25 07:39 07:39 07:39 WBC 22.20 H Hgb 14.1 Hct 40.9 Plt Count 299 PT 15.4 H INR 1.38 Sodium 134 L Potassium 3.8 BUN 10 Creatinine 1.23 Glucose 141 H Magnesium 2.0 Total Bilirubin 1.1 H AST 14 L ALT 22 Alkaline Phosphatase 78 Lipase 30 Assessment & Plan - Problems (Diagnosis) (1) Orchitis, epididymitis, and epididymo-orchitis Current Visit: Yes Status: Acute (2) History of urethral stricture Current Visit: Yes Status: Acute - Plan Plan: 1. Orchitis and epididymitis; most likely related to E. coli. However will check swab for other etiologies. Continue with IV antibiotics. Continue with pain control. Urology consultation if symptoms worsen. 2. History of urethral stricture; outpatient urology follow-up 3. GI DVT prophylaxis Discharge Plan: Home Plan to discharge in: Greater than 2 days - Advance Directives Does patient have a Living Will: No Does patient have a Durable POA for Healthcare: No - Code Status/Comfort Care Code Status Assessed: Yes Code Status: Full Code Critical Care: No Time Spent Managing PTS Care (In Minutes): 45
[2025-05-06] MEDS ORDERED: ASPIRIN 325 MG TAB ONE (09:36)
[2025-05-06] MEDS ORDERED: MORPHINE 4 MG/ML SYR IV PRN (10:25)
[2025-05-06] MEDS ORDERED: ONDANSETRON 4 MG/2 ML VIAL IV PRN (10:25)
[2025-05-06] MEDS ORDERED: ACETAMINOPHEN 500 MG TAB PO PRN (10:25)
[2025-05-06 11:27] LABS: Sqamous Epithelial <5 /HPF (None Seen); Urine Culture Reflex Order REFLEXED; Urine Microscopic Reflex YN ORDER UMIC; Urine WBC Clump Occasional /HPF (None Seen)
[2025-05-06 15:26] VITALS: BMI 37.8
[2025-05-06] MEDS: NA CHLORIDE 0.9% 1,000 ML IV SCH (15:33)
[2025-05-06 17:54] VITALS: O2SAT 99
[2025-05-07 04:58] LABS: Absolute Lymphocytes (CBC) 3.0 K/uL (0.7-4.9); Hematocrit 36.6 % (39.6-49.0); Hemoglobin 12.3 g/dL (13.6-17.9); MCH 27.0 pg (27.0-35.0); MCHC 33.6 g/dL (32.0-36.0); MCV 80.4 fL (80-100); MPV 6.8 fL (7.6-11.3); Nucleated RBC Absolute Count 0.0 (0-0); Nucleated Red Blood Cells % 0.1 % (0-0); RBC Red Blood Cell Count 4.55 M/uL (4.33-5.43); White Blood Count 14.20 thou/uL (4.3-10.9)
[2025-05-07 05:13] LABS: ALT/SGPT 16.0 U/L (16-61); AST/SGOT 13.0 U/L (15-37); Albumin 2.6 g/dL (3.4-5.0); Albumin/Globulin Ratio 0.6 (1.1-1.8); Alkaline Phosphatase 61.0 U/L (45-117); Anion Gap 8.0 mEq/L (5.0-15.0); BUN Blood Urea Nitrogen 8.0 mg/dL (7-18); Globulin 4.2 g/dL (2.3-3.5); Glucose Level 97.0 mg/dL (74-106); PT Prothrombin Time 16.6 SECONDS (10-13.0); PTT, Activated Partial Thromb 33.4 SECONDS (27.2-37.4); Potassium 4.0 mEq/L (3.5-5.1); Protime INR 1.49
[2025-05-07] MEDS: CEFTRIAXONE 2,000 MG in NA CHLORIDE 0.9% 100 ML IV SCH (08:34)
[2025-05-07 15:14] VITALS: BP 138/75; TEMP 98
== END 2025-05-07 17:04 | disposition home or self-care (01) ==
LOC: ER 06:00 → INTOOBSV 10:25 → ERHOLD 10:25 → 2ND 13:41
PROVIDERS: ADMIT Hospitalist; ATTEND Hospitalist
DX: N45.3 Epididymo-orchitis (principal); N35.919 Unspecified urethral stricture, male, unspecified site
CPT/HCPCS: 96365; 93005; 87040 ×2; 87088; 85025 ×2; 81001; 87086; 80048; 36415 ×2; 83735; 85610 ×2; 80076; 83605; 85730; 84484; 83690; 80053; 83880; 74177; 71045; 93975; 76870; 96375; 99285; Q9967; J1885; J3010; J2405; J0696 ×2; J7030 ×4

== ENCOUNTER 2025-05-17 09:55 | Emergency (ER) | payer BC ==
[2025-05-17 11:44] LABS: Sqamous Epithelial None Seen /HPF (None Seen); Urine Crystals Unidentified Few /HPF (None Seen); Urine Culture Reflex Order NOT NEEDED; Urine Microscopic Reflex YN ORDER UMIC; Urine Yeast (Budding) Trace /HPF (None Seen)
[2025-05-17] MEDS ORDERED: FENTANYL CITR 100 MCG/2 ML ONE (13:31)
[2025-05-17] MEDS ORDERED: NA CHLORIDE 0.9% 1,000 ML ONE ×2 (13:31→16:26)
[2025-05-17 13:47] LABS: Absolute Lymphocytes (CBC) 2.5 K/uL (0.7-4.9); Hematocrit 43.1 % (39.6-49.0); Hemoglobin 14.4 g/dL (13.6-17.9); MCH 27.0 pg (27.0-35.0); MCHC 33.3 g/dL (32.0-36.0); MCV 80.9 fL (80-100); MPV 6.7 fL (7.6-11.3); Nucleated RBC Absolute Count 0.0 (0-0); Nucleated Red Blood Cells % 0.1 % (0-0); RBC Red Blood Cell Count 5.33 M/uL (4.33-5.43); White Blood Count 8.20 thou/uL (4.3-10.9)
--- NOTE | 2025-05-17 13:59 | RAD REPORT ---
EXAMINATION: Abdomen Pelvis Wo Contrast CLINICAL INDICATION: Male, 59 years old.Urinary Hesistancy;Abd pain TECHNIQUE: CT abdomen and pelvis was performed, without IV contrast, as per department protocol. Axia l, sagittal and coronal reconstructions were obtained. One or more of the following dose reduction techniques were used: Automated exposure control, adjustment of the mA and/or kV according to the pat ient size, and/or iterative reconstruction. Unless otherwise specified, incidental findings do not require dedicated imaging follow-up. [id number]. IV CONTRAST: Not administered. COMPARISON: 05/06/2025 FINDINGS: The lack of intravenous contrast limits the sensitivity of this exam for evaluation of solid visceral organs, vascular structures, and retroperitoneum. LOWER CHEST: No acute process identified. No significant pericardial effusion. Mild circumferential t hickening of the distal esophagus which could reflect esophagitis. UPPER GI: No significant abnormality. LIVER: No significant focal abnormality. GALLBLADDER/BILE DUCTS: No biliary ductal dilatation.? PANCREAS: No mass, ductal dilation, or candie-pancreatic fluid. SPLEEN: Unremarkable. ADRENALS: No adrenal masses. KIDNEYS AND URETERS: No hydronephrosis. Left upper pole renal lesion which is probably a cyst. ABDOMINAL AORTA AND OTHER VESSELS: Mild atherosclerotic changes. PERITONEUM: No abnormal free fluid. No free air. LYMPH NODES: No pathologic lymphadenopathy. ABDOMINAL WALL: Unremarkable SMALL BOWEL/COLON: Small bowel has normal course and caliber. No colonic wall thickening or pericolon ic inflammatory changes. Normal appendix. URINARY BLADDER: Nonspecific circumferential bladder wall thickening. The bladder is distended. REPRODUCTIVE ORGANS: No pathologic process. MUSCULOSKELETAL: No acute or suspicious osseous abnormality. ADDITIONAL FINDINGS: None. IMPRESSION: Distended bladder with wall thickening. Correlate for urinary retention in the setting of probable ch ronic bladder outlet obstruction..
[2025-05-17 14:03] LABS: ALT/SGPT 32.0 U/L (16-61); AST/SGOT 18.0 U/L (15-37); Albumin 3.8 g/dL (3.4-5.0); Albumin/Globulin Ratio 0.8 (1.1-1.8); Alkaline Phosphatase 80.0 U/L (45-117); Anion Gap 9.8 mEq/L (5.0-15.0); BUN Blood Urea Nitrogen 10.0 mg/dL (7-18); Globulin 4.8 g/dL (2.3-3.5); Glucose Level 110.0 mg/dL (74-106); Potassium 4.8 mEq/L (3.5-5.1)
--- NOTE | 2025-05-17 14:07 | ER ---
Nurse's Notes [facility] Name: Nishant Simpson Age: 59 yrs Sex: Male : 1965 Arrival Date: 05/17/2025 Time: 09:55 Bed 19 Private MD: Diagnosis: Disorder of urinary system, unspecified;Hesitancy of micturition Presentation: 05/17 10:16 Chief complaint: Patient states: urinary urgency that began night. HX of urinary ss stricture. Coronavirus screen: Client denies travel out of the [place] in the last 14 days. Ebola Screen: Patient denies exposure to infectious person. Patient denies travel to an Ebola-affected area in the 21 days before illness onset. Initial Sepsis Screen: Does the patient meet any 2 criteria? No. Patient's initial sepsis screen is negative. Does the patient have a suspected source of infection? No. Patient's initial sepsis screen is negative. Risk Assessment: Do you want to hurt yourself or someone else? Patient reports no desire to harm self or others. Onset of symptoms was May 16, 2025. 10:16 Method Of Arrival: Ambulatory ss 10:16 Acuity: TIMBO 3 ss Historical: - Allergies: 10:18 No Known Allergies; ss - Home Meds: 10:18 None [Active]; ss - PMHx: 10:18 None; ss - PSHx: 10:18 urinary stricture; ss - Immunization history:: Adult Immunizations. - Infectious Disease History:: Denies. - Social history:: Smoking status: Patient reports use of chewing tobacco. Screenin:05 [facility] ED Fall Risk Assessment (Adult) History of falling in the last 3 months, kj2 including since admission No falls in past 3 months (0 pts) Confusion or Disorientation No (0 pts) Intoxicated or Sedated No (0 pts) Impaired Gait No (0 pts) Mobility Assist Device Used No (0 pt) Altered Elimination No (0 pt) Score/Fall Risk Level 0 - 2 = Low Risk Maintained a safe environment, Hourly rounding (assess needs \T\ fall precautionary measures) done. Abuse screen: Denies threats or abuse. Denies injuries from another. Nutritional screening: No deficits noted. Tuberculosis screening: No symptoms or risk factors identified. Assessment: 12:05 General: Appears in no apparent distress. Behavior is calm, cooperative. Pain: Denies kj2 pain. Neuro: Level of Consciousness is awake, alert, obeys commands, Oriented to person, place, time, situation. Cardiovascular: Patient's skin is warm and dry. Respiratory: Airway Respiratory effort is unlabored. GI: No signs and/or symptoms were reported involving the gastrointestinal system. : Reports inability to void. 12:45 Reassessment: 16fr naavrro catheter attempt unsuccessful. 16fr Caude catheter attempt, no kj2 urine returned, unsuccessful. Provider notified and came to assess. 13:08 Reassessment: 430ml per bladder scanner. kj2 13:15 Reassessment: patient able to urinate in urinal 580ml. kj2 14:00 Reassessment: Patient appears in no apparent distress at this time. Patient and/or kj2 family updated on plan of care and expected duration. Pain level reassessed. 16:31 Reassessment: 300ml urine in urinal by patient. kj2 16:50 Reassessment: 1000ml residual per bladder scan. kj2 17:15 Reassessment: suprapubic catheter placed by Dr Barakat. kj2 18:18 Reassessment: Patient appears in no apparent distress at this time. kj2 Vital Signs: 10:15 BP 151 / 92; Pulse 94; Resp 15; Pulse Ox 99% ; Weight 104.33 kg; Height 5 ft. 6 in. ; Pain 6/10; 10:18 Temp 97.9(O); 12:10 BP 153 / 91; Pulse 81; Resp 20; Pulse Ox 100% on R/A; kj2 13:00 BP 141 / 92; Pulse 91; Resp 18; Pulse Ox 100% ; kj2 14:00 BP 142 / 93; Pulse 74; Resp 20; Pulse Ox 100% ; kj2 15:00 BP 156 / 85; Pulse 93; Resp 18; Pulse Ox 100% ; kj2 16:00 BP 134 / 69; Pulse 73; Resp 18; Pulse Ox 100% ; kj2 17:15 BP 165 / 120; Pulse 90; Resp 20; Pulse Ox 100% ; kj2 18:19 BP 152 / 88; Pulse 90; Resp 20; Temp 98; Pulse Ox 100% ; kj2 10:15 Body Mass Index 37.12 (104.33 kg, 167.64 cm) 10:15 Pain Scale: Adult ss ED Course: 10:00 Patient arrived in ED. al6 10:00 Dakota Elmore FNP-C is PHCP. dr5 10:00 July Moon MD is Attending Physician. dr5 10:18 Triage completed. ss 10:18 Arm band placed on right wrist. ss 10:56 Toshia Urbano, GARFIELD is Primary Nurse. me1 11:19 Urine collected: clean catch specimen, keri colored. me1 12:05 Patient has correct armband on for positive identification. Bed in low position. Call kj2 light in reach. Adult w/ patient. Provided Education on: call light. 13:35 Inserted saline lock: 20 gauge antecubital area, using aseptic technique. Blood kj2 collected. Flushed with 10 mL NS. 13:45 CT Abd/Pelvis - Without Contrast In Process Unspecified. EDMS 14:07 initiated a transfer with Leonides from the [facility] transfer center. eb 14:[address] [facility] will have to deny the transfer due to all facilities being at capacity.eb 14:29 initiated a transfer with Erin from the [facility] transfer center. eb 14:45 administrative approval given by Erin Munroe Rn/ patient has been accepted to [place] [id number] med/surg [id number]/ Dr. Og Hansen has auto accepted the patient in transfer/ report to be called to [phone]/ per Erin she may call back with the hospitalist to do doc to doc. 17:58 Donald Barakat MD is Referral Physician. dr5 18:21 called Transfer center to cancel transfer talked to sp 18:21 No provider procedures requiring assistance completed. kj2 18:22 IV discontinued, intact, bleeding controlled, No redness/swelling at site. Pressure kj2 dressing applied. Administered Medications: 13:35 Drug: NS 0.9% IV 1000 ml IV at 1000 ml once; to be given as a bolus over 60 minutes kj2 Route: IV; Rate: 1000 ml; Site: left antecubital; 18:20 Follow up: IV Status: Completed infusion; IV Intake: 1000ml kj2 13:35 Drug: fentaNYL (PF) IVP 50 mcg IVP once Route: IVP; Site: left antecubital; kj2 14:00 Follow up: Response: No adverse reaction kj2 16:44 Drug: NS 0.9% IV 1000 ml IV at 1000 ml once; to be given as a bolus over 60 minutes kj2 Route: IV; Rate: 1000 ml; Site: left antecubital; 18:20 Follow up: IV Status: Completed infusion; IV Intake: 1000ml kj2 17:43 Drug: Lidocaine Infiltration (2 %) 5 mg Infiltration once {Note: administered by kj2 provider.} Route: Infiltration; 18:19 Follow up: Response: No adverse reaction kj2 17:50 Drug: ceFAZolin IVPB 2 grams IVPB once over 30 mins; (mix in 100 mL NS) Route: IVPB; kj2 Infused Over: 30 mins; Site: left antecubital; 18:22 Follow up: IV Status: Completed infusion; IV Intake: 100ml kj2 Medication: 18:22 VIS not applicable for this client. kj2 Intake: 18:20 IV: 1000ml; Total: 1000ml. kj2 18:20 IV: 1000ml; Total: 2000ml. kj2 18:22 IV: 100ml; Total: 2100ml. kj2 Outcome: 14:06 ER care complete, transfer ordered by MD. dr5 17:58 Discharge ordered by MD. dr5 18:22 Discharged to home ambulatory, with family, kj2 18:22 Condition: stable 18:22 Discharge instructions given to patient, Instructed on discharge instructions, follow up and referral plans. Demonstrated understanding of instructions, follow-up care, 18:23 Patient left the ED. kj2 Signatures: Dispatcher [employer] EDMS Milagro Bedolla Shelby, RN RN ss Pretty Chatman Michelle, RN RN me1 Zelda aRy RN RN kj2 Dakota Elmore, MECHANIC CHIEF-C MECHANIC CHIEF-Cdr5 Anamaria Zheng6 Corrections: (The following items were deleted from the chart) 11:22 10:16 Chief complaint: Patient states: urinary urgency that began night. HX of urinary me1 stricture ss
--- NOTE | 2025-05-17 14:07 | EDPHYS ---
Physician Documentation [facility] Name: Nishant Simpson Age: 59 yrs Sex: Male : 1965 Arrival Date: 05/17/2025 Time: 09:55 Bed 19 Private MD: ED Physician July Moon HPI: 05/17 11:20 This 59 yrs old Black Male presents to ER via Ambulatory with complaints of Urinary dr5 Problem. 11:20 Onset: The symptoms/episode began/occurred last night. Patient is a 59-year-old male dr5 with history of orchitis recently hospitalized for sepsis coming in with urinary frequency and urgency that started last night. Patient reports history of urinary stricture 8 to 9 years ago. Patient states he was feeling much better when he was released from the hospital. Patient denies dysuria, fever, abdominal pain.. Historical: - Allergies: 10:18 No Known Allergies; ss - Home Meds: 10:18 None [Active]; ss - PMHx: 10:18 None; ss - PSHx: 10:18 urinary stricture; ss - Immunization history:: Adult Immunizations. - Infectious Disease History:: Denies. - Social history:: Smoking status: Patient reports use of chewing tobacco. ROS: 11:20 Constitutional: as per hpi dr5 Exam: 11:20 Constitutional: This is a well developed, well nourished patient who is awake, alert, dr5 and in no acute distress. Head/Face: Normocephalic, atraumatic. Eyes: Pupils equal round and reactive to light, extra-ocular motions intact. Lids and lashes normal. Conjunctiva and sclera are non-icteric and not injected. Cornea within normal limits. Periorbital areas with no swelling, redness, or edema. ENT: Nares patent. No nasal discharge, no septal abnormalities noted. Tympanic membranes are normal and external auditory canals are clear. Oropharynx with no redness, swelling, or masses, exudates, or evidence of obstruction, uvula midline. Mucous membranes moist. Chest/axilla: Normal chest wall appearance and motion. Nontender with no deformity. No lesions are appreciated. Cardiovascular: Regular rate and rhythm with a normal S1 and S2. Normal PMI, no JVD. No pulse deficits. Respiratory: Lungs have equal breath sounds bilaterally, clear to auscultation. No rales, rhonchi or wheezes noted. No increased work of breathing, no retractions or nasal flaring. Back: No spinal tenderness. No costovertebral tenderness. Full range of motion. Skin: Warm, dry with normal turgor. Normal color with no rashes, no lesions, and no evidence of cellulitis. MS/ Extremity: Pulses equal, no cyanosis. Neurovascular intact. Full, normal range of motion. Neuro: Awake and alert, GCS 15, oriented to person, place, time, and situation. Cranial nerves II-XII grossly intact. Motor strength 5/5 in all extremities. Sensory grossly intact. Cerebellar exam normal. Normal gait. 11:20 Abdomen/GI: Inspection: abdomen appears normal, Bowel sounds: normal, Palpation: mild abdominal tenderness, in the suprapubic area, Vital Signs: 10:15 BP 151 / 92; Pulse 94; Resp 15; Pulse Ox 99% ; Weight 104.33 kg; Height 5 ft. 6 in. ; ss Pain 6/10; 10:18 Temp 97.9(O); ss 12:10 BP 153 / 91; Pulse 81; Resp 20; Pulse Ox 100% on R/A; kj2 13:00 BP 141 / 92; Pulse 91; Resp 18; Pulse Ox 100% ; kj2 14:00 BP 142 / 93; Pulse 74; Resp 20; Pulse Ox 100% ; kj2 15:00 BP 156 / 85; Pulse 93; Resp 18; Pulse Ox 100% ; kj2 16:00 BP 134 / 69; Pulse 73; Resp 18; Pulse Ox 100% ; kj2 17:15 BP 165 / 120; Pulse 90; Resp 20; Pulse Ox 100% ; kj2 18:19 BP 152 / 88; Pulse 90; Resp 20; Temp 98; Pulse Ox 100% ; kj2 10:15 Body Mass Index 37.12 (104.33 kg, 167.64 cm) 10:15 Pain Scale: Adult ss Procedures: 12:17 Ultrasound: Type: Bladder Scanner Post Void, Performed by Me. Post Void residual is dr5 approximately [address] navarro. 13:12 Coud inserted by myself - 16 Fr. Unable to pass 16 Guyanese regular navarro or 16 Guyanese dr5 Coude. Coud removed intact, Patient tolerated well. MDM: 10:00 Medical Screening Exam initiated dr5 13:12 Differential diagnosis: viral Infection, bacterial infection, UTI, Urinary Stricture. dr5 Data reviewed: vital signs, nurses notes, lab test result(s), CBC, white blood cell count, hemoglobin, hematocrit, platelets, radiologic studies, CT scan. 13:43 ED course: Patient on the way to get the CT scan. Prior to CT scan, patient voided dr5 approximately 600 cc of urine and reports all symptoms have alleviated. 14:54 Consideration of Admission/Observation Patient was admitted/placed on observation. dr5 Management of patient was discussed with the following: Hospitalist: Dr. Hansen. I considered the following discharge prescriptions or medication management in the emergency department I discussed and recommended Over The Counter medications, Medications were administered in the Emergency Department. See MAR. Historians other than the Patient: Spouse/Significant Other: Spouse. Care significantly affected by the following Social Determinants of Health: Poor access to healthcare and/or lack of insurance, Poor access to transportation, Problems related to employment. Counseling: I had a detailed discussion with the patient and/or guardian regarding the historical points, exam findings, and any diagnostic results supporting the discharge/admit diagnosis, the presence of at least one elevated blood pressure reading (>120/80) during this emergency department visit, lab results, the need to transfer to another facility, for higher level of care, [facility] does not immediately have the required specialist, Patient requires likely procedure from urologist. No urology on-call and will need to transfer for further management.. ED course: Spoke with patient and family member who agreed to be transferred to [facility] for further management with urologist.. 15:33 ED course: Patient was accepted to [place]. Spoke with hospitalist who accepted dr5 patient. Upon getting patient to sign permission to transfer, Mili his spoke with Dr. Barakat and now wants me to contact Dr. Barakat. I called Dr. Barakat who states he will come by and see the patient for further management. Will hold off on transfer at this time until Dr. Barakat sees patient.. 17:56 ED course: Dr. Barakat placed suprapubic catheter. Recommended 2g Ancef IV now and no dr5 outpatient abx. Dr. Barakat will reach out to patient for follow up next week. Will cancel transfer.. 05/17 10:23 Order name: UA Rfx Peter Cult if indicated; Complete Time: 11:50 dr5 05/17 13:04 Order name: CBC with Diff; Complete Time: 13:53 05/17 13:04 Order name: CMP; Complete Time: 14:05 05/17 13:04 Order name: CT Abd/Pelvis - Without Contrast; Complete Time: 14:01 dr5 05/17 10:23 Order name: Bladder Scanner; Complete Time: 13:08 05/17 12:17 Order name: Navarro; Complete Time: 13:52 dr5 Administered Medications: 13:35 Drug: NS 0.9% IV 1000 ml IV at 1000 ml once; to be given as a bolus over 60 minutes kj2 Route: IV; Rate: 1000 ml; Site: left antecubital; 18:20 Follow up: IV Status: Completed infusion; IV Intake: 1000ml kj2 13:35 Drug: fentaNYL (PF) IVP 50 mcg IVP once Route: IVP; Site: left antecubital; kj2 14:00 Follow up: Response: No adverse reaction kj2 16:44 Drug: NS 0.9% IV 1000 ml IV at 1000 ml once; to be given as a bolus over 60 minutes kj2 Route: IV; Rate: 1000 ml; Site: left antecubital; 18:20 Follow up: IV Status: Completed infusion; IV Intake: 1000ml kj2 17:43 Drug: Lidocaine Infiltration (2 %) 5 mg Infiltration once {Note: administered by kj2 provider.} Route: Infiltration; 18:19 Follow up: Response: No adverse reaction kj2 17:50 Drug: ceFAZolin IVPB 2 grams IVPB once over 30 mins; (mix in 100 mL NS) Route: IVPB; kj2 Infused Over: 30 mins; Site: left antecubital; 18:22 Follow up: IV Status: Completed infusion; IV Intake: 100ml kj2 Disposition Summary: 05/17/25 17:58 Discharge Ordered Notes: Location: Home dr5 Condition: Stable(05/17/25 17:58) dr5 Diagnosis - Disorder of urinary system, unspecified dr5 - Hesitancy of micturition dr5 Followup: dr5 - With: Emergency Department - When: As needed - Reason: Worsening of condition Followup: dr5 - With: Donald Barakat MD - When: 1 - 2 days - Reason: Recheck today's complaints, Continuance of care, Re-evaluation by your physician Discharge Instructions: - Discharge Summary Sheet dr5 - Indwelling Urinary Catheter Care, Adult dr5 Forms: - Medication Reconciliation Form dr5 - Patient Portal Instructions dr5 - Leadership Thank You Letter dr5 Signatures: Dispatcher [facility] Cuca Muñoz, RN RN ss Zelda Ray RN RN kj2 Dakota Elmore, PRODUCT SCIENTIST-C PRODUCT SCIENTIST-Cdr5 Corrections: (The following items were deleted from the chart) 13:04 13:04 Abdomen Pelvis Wo Con+CT.RAD.BRZ ordered. [facility] EDME 14:54 14:06 [address]rologist dr5 dr5 14:54 14:06 Other Acute Care Facility dr5 dr5 17:58 14:06 Higher level of care dr5 dr5 17:58 14:06 Stable dr5 dr5 17:58 14:06 new dr5 dr5 17:58 14:06 have worsened dr5 dr5 17:58 14:06 Other obstructive and reflux uropathy dr5 dr5 17:58 14:54 Dr. Og Hansen dr5 dr5 17:58 14:54 [facility] dr5 dr5
[2025-05-17] MEDS ORDERED: LIDOCAINE 2% INJ, 20 mL 20 ML ONE (16:26)
[2025-05-17] MEDS ORDERED: NA CHLORIDE 0.9% 100 ML ONE (17:49)
[2025-05-17] MEDS ORDERED: CEFAZOLIN SODIUM 2 GM/VIAL ONE (17:50)
--- NOTE | 2025-05-17 17:59 | P.CNS ---
Date of Consult: 05/17/25 Reason for Consult: Urinary retention Chief Complaint: Inability to void History of Present Illness: 59-year-old gentleman with hypercholesterolemia last seen by me in 2020 with history of DVIU x [address] Tyson followed by DVIU plus intralesional Kenalog given by me 01/20/2021, who presented via the emergency department with sudden onset inability to urinate for the last several hours. On 05/06/2025, he was also seen in the emergency department after lifting and straining and developed severe right sided groin pain associated with some fever. That had been going on for about 3 days before he came in, and in the emergency department, he was diagnosed with epididymoorchitis and treated with Levaquin 750 mg x 2 weeks total. 05/06/2025 scrotal ultrasound with Doppler impression: Acute right epididymal orchitis with mild right hydrocele that is mildly complex. 05/06/2025 WBC 22.2, hemoglobin 14.1, platelets 299, INR 1.38, creatinine 1.23, troponin I 89.0, LFTs normal, urinalysis positive nitrites, 1+ leukocyte esterase, over 50 WBCs per hpf, 11-20 RBCs per hpf, and urine culture was no growth. He was admitted for 2 days prior to discharge until today's event. 05/17/2025 CT abdomen and pelvis without contrast impression: Distended bladder with wall thickening. No other acute findings except left upper pole renal lesion probably a cyst per report. Her bladder was distended. There were [address] a catheter that were unsuccessful, but after the second attempt, he was able to at least partially void. As a result, while he got some relief, he still had large volume incomplete emptying with a bladder scan PVR over 400 cc. This is when I was consulted. Past medical history: Hypercholesterolemia as above Past surgical history: DVIU x 3 as above Family history: Denies urologic malignancy Social history: Dipping tobacco x 25 years No known drug allergies Examination: Patient reasonably comfortable at this point in no acute distress Alert, awake, oriented x 3 No dyspnea or sign of respiratory distress Bladder palpably distended above the umbilicus. Bladder scan performed greater than 999 cc I then counseled him on options for management as follows: -Given the high likelihood this is recurrence of stricture disease and further attempts at catheterization urethral he we will only further traumatize that stricture disease, which has already been incised and dilated at least 3 times, while placement of a urethral Guillermo catheter could potentially be performed associated with dilation over a wire and bedside cystoscopy, I did not think this would be a good long-term prospect. -Instead, I explained the potential utility of placing a suprapubic catheter. I explained how the procedure would be performed in detail and discussed doing it at bedside. -Alternatively, he could go home and continue to void as he is, recognizing he is at high risk of having recurrent retention. He correctly accepted my recommendation to place a suprapubic catheter. Suprapubic catheter placement procedure note: He was placed supine on the stretcher and then placed in the steep Trendelenburg position. I prepped the suprapubic region below his umbilicus with Betadine and draped in standard fashion. I then instilled 2% lidocaine subcutaneously and down deep into the suprapubic tissues for local anesthesia. Then, using the kit for the Blomming suprapubic catheter, I used the associated blade to incise the skin about 1 cm and then utilized a Clarissa clamp within a suture kit to spread and dilate the tissues subcutaneously. I then attempted to place the suprapubic catheter through that incision into his bladder, but after going several centimeters and and not appropriately achieving return of urine, I was concerned about potential misplacement and/or the risk of bowel injury. As a result, I then utilized a spinal needle placed through the same incision site and at the same angle as initially desired, and was able to aspirate as I inserted the needle several centimeters deep in order to eventually obtain clear yellow u rine. Now knowing exactly how deep I needed to go in order to gain access into his bladder, I then reemployed the suprapubic tube with its stylette within and successfully was able to puncture and into his bladder with relative ease. I then coiled the suprapubic catheter within his bladder, and I had prompt return of a large volume of clear yellow urine. I pulled the string to secure the Roark loop technology, and the catheter was secured at the skin using 2-0 silk suture. The catheter was then connected to a leg bag and did decompress his bladder of well over 700 or so cc of clear yellow urine. I secured the catheter to his abdomen using the provided catheter securing device, and then the emergency department nurse metallurgical laboratory assistant cleaned away the Betadine and dress the suprapubic site accordingly. I then recommended he be given 2 g of Ancef for antimicrobial prophylaxis given the catheterizations and the percutaneous approach for the suprapubic catheter placement. He was then discharged from the emergency department eventually in good condition. Complications: None apparent Diagnoses and recommendation: Recent acute epididymoorchitis likely a complication of large volume incomplete bladder emptying that progressed to acute urinary retention in the setting of a history of bulbar urethral stricture disease prohibiting urethral Guillermo catheter placement s/p bedside suprapubic catheter placement 05/17/2025 in the emergency department. - He should continue the Levaquin antimicrobial provided to him by the emergency department originally -Recommend follow-up where we will perform cystoscopy (urethroscopy) to evaluate the location and extent of the stricture disease. Thereafter, we can discuss options for management, which would include either definitive urethroplasty or potentially a trial using the Optilume chemotherapy coated balloon. Allergies No Known Allergies Allergy (Verified 01/16/21 11:21) Home medications list reviewed: Yes Home Medications: Cefdinir [Cefdinir*] 300 mg PO BID #10 cap 05/09/25 - Past Medical/Surgical History Diabetic: No - Social History Alcohol use: Yes CD- Drugs: No Caffeine use: No Physical Examination Laboratory Data (last 24 hrs) 05/17/25 05/17/25 13:35 13:35 WBC 8.20 Hgb 14.4 Hct 43.1 Plt Count 404 Sodium 140 Potassium 4.8 BUN 10 Creatinine 1.24 Glucose 110 H Total Bilirubin 0.7 AST 18 ALT 32 Alkaline Phosphatase 80 - Problems (1) Acute urinary retention Current Visit: Yes Status: Acute (2) History of urethral stricture Current Visit: No Status: Acute (3) Membranous urethral stricture Current Visit: No Status: Acute (4) Orchitis, epididymitis, and epididymo-orchitis Current Visit: No Status: Acute Conclusions/Impression: see A&P in HPI Critical Care: Yes Time Spent Managing Pts care (In Minutes): 90
[2025-05-18 00:46] VITALS: O2SAT 100
[2025-05-18 00:53] VITALS: BP 152/88; TEMP 98
== END 2025-05-17 18:23 | disposition home or self-care (01) ==
LOC: ER 09:55
DX: R39.11 Hesitancy of micturition (principal); N39.9 Disorder of urinary system, unspecified; R33.9 Retention of urine, unspecified; N35.919 Unspecified urethral stricture, male, unspecified site; F17.220 Nicotine dependence, chewing tobacco, uncomplicated
CPT/HCPCS: 96365; 96361; 85025; 81001; 36415; 80053; 74176; 96375; 99284; J3010; J7030 ×2